=== PATIENT | female | born 2000 | race Caucasian/White ===

== ENCOUNTER 2023-12-30 18:03 | Inpatient (IN) | payer BC ==
[2023-12-30] MEDS ORDERED: Butorphanol Tartrate 1 MG/ML VIAL SLOW IVP PRN (18:28)
[2023-12-30] MEDS ORDERED: Acetaminophen 500 MG TAB PO PRN (18:28)
[2023-12-30] MEDS ORDERED: Ondansetron PF 4 MG/2 ML Vial IVP PRN ×2 (18:28→23:43)
[2023-12-30] MEDS ORDERED: Carboprost 250 MCG/ML AMP IM PRN (18:28)
[2023-12-30] MEDS ORDERED: HYDROcodone/Acetaminophen 5/325 mg Tablet PO PRN ×4 (18:28→23:43)
[2023-12-30] MEDS ORDERED: hydrALAZINE 20 MG/ML VIAL SLOW IVP PRN ×3 (18:28→23:43)
[2023-12-30] MEDS ORDERED: fentaNYL 50 mcg/mL 1 mL Vial SLOW IVP PRN (18:28)
[2023-12-30] MEDS ORDERED: Misoprostol 200 MCG TAB PR PRN (18:28)
[2023-12-30] MEDS ORDERED: Lidocaine 1% (PF) 30 ML VIAL SC PRN (18:28)
[2023-12-30] MEDS ORDERED: Promethazine HCl 25 MG/ML VIAL IM PRN (18:28)
[2023-12-30] MEDS ORDERED: Methylergonovine 0.2 MG/ML VIAL IM PRN (18:28)
[2023-12-30] MEDS ORDERED: Ibuprofen 800 MG TAB PO PRN (18:28)
[2023-12-30] MEDS ORDERED: Penicillin G Potassium 5 MILL.UNITS in Sodium Chloride 0.9% 100 ML IVPB SCH (18:30)
[2023-12-30 19:17] VITALS: BMI 34.0
[2023-12-30 19:40] LABS: Hematocrit 33.8 % (34.9-44.5); Hemoglobin 11.1 g/dL (12.0-15.5); Mean Corpuscular HGB CONC 32.8 g/dL (32.0-36.0); Mean Corpuscular Hemoglobin 28.8 pg (27.0-33.0); Mean Corpuscular Volume 87.6 fL (81.6-98.3); Platelet Count 276 10x3/uL (150-450); RBC Distribution Width 12.8 % (11.5-14.5); Red Blood Cell (RBC) Count 3.86 10x6/uL (3.90-5.03); White Blood Cell (WBC) Count 19.5 10x3/uL (3.5-10.5)
[2023-12-30] MEDS: Oxytocin 30 units/NS 500 ML 500 ML IV SCH (20:24)
[2023-12-30] MEDS ORDERED: Milk Of Magnesia 30 ML UDCUP PO PRN ×2 (20:37→23:43)
[2023-12-30] MEDS ORDERED: Bisacodyl 10 MG SUPP PR PRN ×2 (20:37→23:43)
[2023-12-30 21:40] LABS: HBsAg Index 0.22 S/CO (0-0.99); Hep B Surf Ag - L&D Non-Reactive S/CO (NonReactive)
[2023-12-30 21:50] LABS: Syphilis Antibody Nonreactive (Nonreactive); Syphilis Antibody Index 0.06 S/CO (<1.00 Non-Reactive)
[2023-12-30] MEDS: Penicillin G Potassium 5 MILL.UNITS VIAL ONE (22:10)
[2023-12-30] MEDS: Oxytocin 30 units/NS 500 ML 500 ML ONE (22:10)
[2023-12-30] MEDS: Lidocaine 1% (PF) 30 ML VIAL ONE (22:10)
[2023-12-30] MEDS: Lactated Ringer's 1,000 ML IV SCH ×2 (22:11→22:12)
[2023-12-30] MEDS ORDERED: Penicillin G 2.5 MILL.units 2.5 MILL.UNITS in Premix 1 BAG IVPB SCH (22:30)
[2023-12-30] MEDS: Boostrix 0.5 ML (Tdap) VIAL (>/=7 yrs of age) IM ONE (23:39)
[2023-12-30] MEDS ORDERED: Lanolin Ointment 7 GM TUBE TOP PRN (23:43)
[2023-12-30] MEDS ORDERED: diphenhydrAMINE 25 MG CAP PO PRN (23:43)
[2023-12-31] MEDS: Docusate 100 MG CAP PO SCH ×2 (04:18→08:52)
[2023-12-31] MEDS ORDERED: Benzocaine-Menthol 82.5 ML CAN TOP PRN (04:51)
[2023-12-31] MEDS: Ibuprofen 800 MG TAB PO SCH (06:24)
[2023-12-31] MEDS ORDERED: Ferrous Sulfate 325 MG TAB PO SCH (08:00)
[2023-12-31] MEDS: Ferrous Sulfate 325 MG TAB PO SCH (08:51)
[2023-12-31] MEDS: Prenatal Vitamin 1 TAB PO SCH (08:52)
[2024-01-01 09:08] VITALS: BP 115/69; TEMP 97.9
== END 2024-01-01 13:40 | disposition home or self-care (01) | DRG 807 ==
LOC: CSHLD/OP 18:03 → CSHLD 18:29 → CSHPP 21:16
PROVIDERS: ADMIT Obstetrics & Gynecology; ATTEND Obstetrics & Gynecology
PROC: 10E0XZZ Delivery of Products of Conception, External Approach (ICD-10-PCS; principal; 2023-12-30)
PROC: 0W8NXZZ Division of Female Perineum, External Approach (ICD-10-PCS; 2023-12-30)
DX: O80 Encounter for full-term uncomplicated delivery (principal); Z37.0 Single live birth; Z3A.35 35 weeks gestation of pregnancy
CPT/HCPCS: 36415; 85027; 86780; 86850; 86900; 86901; 87340; 88307; 99285; J2001; J2540; J2590